=== PATIENT | male | born 1940 | race Caucasian/White ===

== ENCOUNTER → 2018-02-17 | Outpatient (CLI) | payer MEDICARE ==
[~2018-02-17] MED LIST: ASPI-COR81 M1 PO; ATENOLOL25 MG PO; CARAFATE1 G1; LISINOPRIL10 MG PO; MOBIC15 MG PO; PRILOSEC20 M1; PROAIR HFA0.09 MG/AC IH
== END | disposition home or self-care (01) ==
LOC: US 10:04
DX: K76.0 Fatty (change of) liver, not elsewhere classified (principal); N28.9 Disorder of kidney and ureter, unspecified

== ENCOUNTER → 2019-05-17 | Outpatient (CLI) | payer MEDICARE | END | disposition home or self-care (01) | LOC: US 07:19 | DX: K76.0 Fatty (change of) liver, not elsewhere classified (principal) ==

== ENCOUNTER → 2019-06-03 | Outpatient (CLI) | payer MEDICARE ==
[2019-06-03 14:19] LABS: CREATININE 1.05 mg/dL (0.70-1.30)
== END | disposition home or self-care (01) ==
LOC: CT 13:36 → LAB 13:36 → CT 14:00
PROVIDERS: Internal Medicine
DX: I71.4 Abdominal aortic aneurysm, without rupture (principal)

== ENCOUNTER → 2022-04-02 | Outpatient (CLI) | payer MEDICARE, OTHER | END | disposition home or self-care (01) | LOC: RAD 11:46 | PROVIDERS: ATTEND Internal Medicine | DX: J43.9 Emphysema, unspecified (principal) ==

== ENCOUNTER → 2022-05-12 | Day surgery (SDC) | payer MEDICARE ==
[2022-05-08 14:13] VITALS: BP 156/86
[~2022-05-12] VITALS: Ht 175.2 cm; Wt 99.8 kg
[2022-05-12] VITALS (8 sets, daily range): BP systolic 132–162; BP diastolic 73–93
[~2022-05-12] MED LIST changes: +COLACE100 MG PO; +ONDANSETRON HYDR4 M1 PO; +PERCOCET 5-3251 EACH PO
== END | disposition home or self-care (01) ==
LOC: SDC 05-08 14:00 → EDBD 05-08 14:00 → SDC 05:43
PROVIDERS: ATTEND Surgery
DX: K43.6 Other and unspecified ventral hernia with obstruction, without gangrene (principal); I10 Essential (primary) hypertension; J44.9 Chronic obstructive pulmonary disease, unspecified; M19.90 Unspecified osteoarthritis, unspecified site; Z79.899 Other long term (current) drug therapy

== ENCOUNTER → 2024-01-19 | Outpatient (CLI) | payer MEDICARE ==
[~2024-01-19] MED LIST changes: +ACETAZOLAMIDE250 MG PO; +AMOX-CLAV 875-1 EACH PO; +ATORVASTATIN CA10 M1 PO; +DOXYCYCLINE HY100 M3 PO; +FINASTERIDE5 M1 PO; +FLUCONAZOL200 MG/101 NAS; +K-TAB20 MEQ PO; +LASIX20 MG PO; -LISINOPRIL10 MG PO; +LISINOPRIL20 MG PO; +LOPRESSOR25 MG PO; +MELOXICAM15 MG PO; +OXYGEN NAS; +PREDNISONE10 MG PO; +PROAIR DIGIHAL90 MCG INH
== END | disposition home or self-care (01) ==
LOC: US 15:54
PROVIDERS: ATTEND Nurse Practitioner Family
DX: N43.2 Other hydrocele (principal); N50.89 Other specified disorders of the male genital organs

== ENCOUNTER → 2024-03-09 | Outpatient (CLI) | payer MEDICARE ==
[~2024-03-09] MED LIST changes: +Regadenoson 0.4 MG/5 ML SYR IV ONE; +Technetium Tc 99M Tetrofosmi 0.23 MG KIT IJ SCH
== END | disposition home or self-care (01) ==
LOC: CARD 02:03
PROVIDERS: ATTEND Internal Medicine Cardiovascular Disease
DX: R06.02 Shortness of breath (principal)

== ENCOUNTER → 2024-09-13 | Outpatient (CLI) | payer MEDICARE ==
[~2024-09-13] MED LIST changes: -Regadenoson 0.4 MG/5 ML SYR IV ONE; -Technetium Tc 99M Tetrofosmi 0.23 MG KIT IJ SCH
== END | disposition home or self-care (01) ==
LOC: CARD 08-15 08:30
PROVIDERS: ATTEND Internal Medicine Cardiovascular Disease
DX: I08.3 Combined rheumatic disorders of mitral, aortic and tricuspid valves (principal); R01.1 Cardiac murmur, unspecified; R00.1 Bradycardia, unspecified; I27.20 Pulmonary hypertension, unspecified

== ENCOUNTER → 2025-08-18 | Outpatient (CLI) | payer MEDICARE | END | disposition home or self-care (01) | LOC: US 02:26 | PROVIDERS: ATTEND Nurse Practitioner Family | DX: N43.3 Hydrocele, unspecified (principal); N44.8 Other noninflammatory disorders of the testis; N45.2 Orchitis ==